=== PATIENT | female | born 1975 | race Caucasian/White ===

== ENCOUNTER → 2016-06-22 | Outpatient (REF) ==
[~2016-06-22] MED LIST: LORTAB 5/500 501 TAB PO; NO HOME MEDICATIONS
== END ==
LOC: WSOH 13:12
DX: Z02.89 Encounter for other administrative examinations (principal)

== ENCOUNTER → 2016-07-02 | Outpatient (REF) | LOC: WSOH 14:00 | DX: Z02.89 Encounter for other administrative examinations (principal) ==

== ENCOUNTER → 2016-07-04 | Outpatient (REF) | LOC: WSOH 15:00 | DX: Z23 Encounter for immunization (principal) ==

== ENCOUNTER → 2016-08-27 | Outpatient (REF) | LOC: WSOH 14:40 | DX: Z23 Encounter for immunization (principal) ==

== ENCOUNTER → 2020-06-01 | Outpatient (REF) | LOC: WSOH 08:04 | DX: Z02.89 Encounter for other administrative examinations (principal) ==